=== PATIENT | female | born 1945 | race Caucasian/White ===

== ENCOUNTER → 2016-12-07 | Outpatient (CLI) | payer MEDICARE | LOC: MAMMO 13:09 | PROVIDERS: ATTEND Family Medicine | DX: Z12.31 Encounter for screening mammogram for malignant neoplasm of breast (principal) ==

== ENCOUNTER → 2017-01-19 | Outpatient (CLI) | payer MEDICARE | END | disposition home or self-care (01) | LOC: GMAM 11:03 | PROVIDERS: ATTEND Family Medicine | DX: R31.21 Asymptomatic microscopic hematuria (principal); R31.0 Gross hematuria ==

== ENCOUNTER → 2017-02-01 | Outpatient (CLI) | payer MEDICARE | END | disposition home or self-care (01) | LOC: GMAM 15:06 | PROVIDERS: ATTEND Family Medicine | DX: J44.1 Chronic obstructive pulmonary disease with (acute) exacerbation (principal) ==